=== PATIENT | female | born 1955 | race Caucasian/White ===

== ENCOUNTER → 2020-01-27 | Outpatient (CLI) | payer OTHER ==
[~2020-01-27] MED LIST: ADVAIR HFA 115-12 G1 INH; ALDACTONE50 MG PO; ALLER-FLO15.8 ML NASAL; AMBIEN 10 MG TA10 MG PO; CULTURELLE PRO1 EACH PO; FAMOTIDINE 10 M10 MG PO; LEXAPRO20 MG PO; LISINOPRIL-HCT1 EAC2 PO; PROTONIX40 M4 PO; SINGULAIR 10 MG10 M1 PO; XYZAL5 MG PO; ZOCOR20 MG PO
== END ==
LOC: LAB 11:00
PROVIDERS: ATTEND Surgery
DX: Z01.812 Encounter for preprocedural laboratory examination (principal); Z20.828 Contact with and (suspected) exposure to other viral communicable diseases

== ENCOUNTER 2020-01-31 12:33 | Observation (INO) | payer OTHER ==
[~2020-01-31] VITALS: Ht 165.1 cm; Wt 80.3 kg
--- NOTE | ~2020-01-31 | O ---
[facility] [place] [address] [place] [address] OPERATIVE REPORT Name: HAYDEE SWANSON Room #: 433-I [facility]..#: [id number] Admission: 01/31/20 Attend Phys: Ted Hsieh MD Discharge: Date of : 59 Report #: [id number] THIS REPORT FOR: cc: Carlitos Landis MD,Carlitos Hsieh,Ted Dawson MD ~ CC: Alfonso Hsieh DATE OF SERVICE: 01/31/2020 PREOPERATIVE DIAGNOSIS: Chronic cholecystitis with cholelithiasis and elevated liver function test. POSTOPERATIVE DIAGNOSES: Chronic cholecystitis with cholelithiasis and stone stuck in the gallbladder neck with a nonfunctional gallbladder, fatty liver. PROCEDURES PERFORMED: 1. Laparoscopic cholecystectomy with cholangiogram. 2. Needle core liver biopsy. SURGEON: Ted Hsieh MD COMPLICATIONS: None. ESTIMATED BLOOD LOSS: 20 mL. PROCEDURE NOTE: With the patient under general anesthesia, abdomen prepped and draped in sterile fashion. IV antibiotic was administered. Timeout was performed. A 0.25% Marcaine was used to anesthetize the skin infraumbilically. Fascia identified. After making a 2 cm incision, the fascia was opened between clamps. 0 Vicryl suture placed on the fascia edges for retraction. Veress needle was then placed through the peritoneum. Abdominal cavity was insufflated with CO2. After creating pneumoperitoneum pressure of 15, 11 mm trocar was placed under visualization into the pneumoperitoneum. No harm to underlying tissue. The two 5-mm trocars were placed in the right upper quadrant, another 5 mm trocar was placed in right epigastrium. The patient had quite a bit of adhesion over the gallbladder also along the liver on the lateral edge of the inferior right lobe. The adhesions were taken down. The gallbladder was identified. The gallbladder was thickened and contracted. Dissection was carried out of the proximal part of the gallbladder after finding the cystic duct was noted just below the cystic duct gallbladder junction about 5 mm, there is a stone stuck in the cystic duct. The cystic duct was isolated and the more proximal aspect of cystic duct was freed. A clip was placed in junction of cystic duct to the gallbladder. Opening was made in the cystic duct just below [address] [address] OPERATIVE REPORT Name: HAYDEE SWANSON Room #: 433-I [facility]#: [id number] Admission: 01/31/20 Attend Phys: Ted Hsieh MD Discharge: Date of : 59 Report #: [id number] where the stone was located. Cholangiogram catheter was placed. Fluoroscopic cholangiogram was obtained. Common bile duct filled out well. No filling defect. Catheter was identified. Cystic duct, no harm to the common duct was seen. The cholangiogram catheter was then removed. The proximal cystic duct was then clipped x 2. Cystic duct was then divided. Cystic artery was then isolated, clipped x 2 proximally and 1 distally and then divided. Gallbladder was free from the liver bed. The gallbladder was fairly thin along the posterior aspect and the opening was made in the gallbladder, very thick mucusy material which was __ identified in the gallbladder. This was suctioned out. A couple of stones or cm size did fall out and these stones were retrieved and placed over the omentum. At this point, the gallbladder was already freed. Gallbladder was placed in specimen bag. The two stones were also placed in the liver bed. Gallbladder was then removed without difficulty through the infraumbilical port. Gallbladder was opened off the field and there are a small last couple of small stones in the cystic duct. It was stuck there. Liver bed was checked, hemostasis obtained. Surgicel was cut and placed in the abdomen. Liver biopsy performed with an 18-gauge 22 mm Monopty biopsy gun. Two separate good cores were obtained. Specimen was placed on Telfa, moistened with saline and then placed in formalin. The gallbladder was also placed in a specimen container. Liver bed was checked. No bleeding. After pressure and the Surgicel over the liver biopsy site, hemostasis was obtained here too. A small piece of Surgicel was left over the liver biopsy site. CO2 was evacuated. Trocars removed. Infraumbilical fascia defect was closed with [id number] 0 Vicryl x 2. Skin was closed with 5-0 PDS. Steri-Strip, Band-Aids applied. The patient tolerated the procedure well. By: 20 38 Ted Hsieh MD /nt
[2020-01-31 13:26] LABS: HEMATOCRIT 38.5 % (37.0-47.0); HEMOGLOBIN 13.1 gm/dL (12.0-15.0)
[2020-01-31 13:33] LABS: CALCIUM 8.4 mg/dL (8.5-10.1); CREATININE 0.9 mg/dL (0.6-1.0); POTASSIUM 3.8 mmol/L (3.5-5.1)
[2020-01-31 13:47] VITALS: BP 139/80
--- NOTE | 2020-01-31 16:27 | H ---
[facility] [place] [address] [place] [address] HISTORY AND PHYSICAL Name: HAYDEE SWANSON Room #: 150-2 [facility] M.R.#: [id number] Admission: 01/31/20 Attend Phys: Ted Hsieh MD Discharge: Date of : 59 Report #: [id number] THIS REPORT FOR: cc: Carlitos Landis MD,Carlitos Hsieh,Ted Dawson MD ~ CC: Alfonso Hsieh PREOPERATIVE DIAGNOSES: Cholecystitis with cholelithiasis and abdominal pain. HISTORY OF PRESENT ILLNESS: The patient is a 64-year-old who has had epigastric pain since last April. The patient has been experiencing heartburn for years, history of reflux. She is complaining of pain located in the epigastrium that wraps to her back. She has history of vomiting quite a bit. No nausea. The patient does complain of bloating, full feeling, gas and also belching. She has had occasional loose stool. When the pain gets worse it is rated at 6/10 and the intense part would last only a few minutes. This occurs more at nighttime. She thinks her dad had gallbladder surgery and also her brother for sure. No history of jaundice. She has had EGDs. Her last one looked pretty normal. Her liver function has been elevated up to about 150 range and now currently it is down in the 48 range. The patient's ultrasound did show gallstones in the gallbladder are mobile. The largest one measures a cm. No wall thickening, no pericholecystic fluid, no ductal dilatation. The patient's symptoms are consistent with gallbladder disease. She is recommended to have gallbladder laparoscopic cholecystectomy. PAST MEDICAL HISTORY: The patient has seasonal asthma. She has a history of high blood pressure controlled with meds. The patient denies diabetes, denies lung disease, denies liver disease, denies kidney disease, denies bleeding disorder, denies history of blood clot. ALLERGIES: None. MEDICATIONS: Zolpidem tartrate 10 mg, Pepcid, Protonix, citalopram 20 mg, levocetirizine 5 mg, spironolactone 50 mg, and Singulair 10 mg. FAMILY HISTORY: There is heart disease that runs on the mother's side. SOCIAL HISTORY: The patient is a retired personal injury attorney. She does not smoke. The patient has 2 glasses of wine per day. REVIEW OF SYSTEMS: No chest pain, shortness of breath or palpitation. No numbness or weakness. PHYSICAL EXAMINATION: [facility] [address] [place] [address] HISTORY AND PHYSICAL Name: HAYDEE SWANSON Room #: [address] [place] [address] M.R.#: [id number] Admission: 01/31/20 Attend Phys: Ted Hsieh MD Discharge: Date of : 59 Report #: [id number] GENERAL: The patient is a well-nourished female in no acute distress. HEENT: Pupils react to light. Sclerae are nonicteric. Oropharynx is clear. NECK: Soft and supple, no masses, no JVD. LUNGS: Clear to auscultation. No wheezes. HEART: Regular rate and rhythm. No murmur or gallop. ABDOMEN: Soft with mild tenderness in right upper quadrant. No mass, no ascites. No distention. EXTREMITIES: No cyanosis, clubbing or edema. NEUROLOGIC: Motor and sensory exams normal. IMPRESSION: The patient is a 64-year-old with abdominal pain located in the epigastric area, wraps to her back. The patient does have associated vomiting and bloating. The symptoms are consistent with gallbladder disease. She does have a history of reflux, has had many EGDs in the past. Her last EGD was normal. Her liver function tests have been elevated, but have dropped down probably due to the gallbladder disease. She does have gallstones. The patient is recommended to undergo laparoscopic cholecystectomy, treat her symptomatic cholecystitis with cholelithiasis. Procedure discussed in detail. Expected recovery was discussed. Risk of bleeding, infection, common bile duct injury was discussed. The patient understands the procedure and wished to proceed. <ELECTRONICALLY SIGNED> By: Ted Hsieh MD 01/31/20 1627 2300 [id number] Ted Hsieh MD /nt
--- NOTE | 2020-01-31 18:59 | NUR ---
PATIENT ADMITTED FROM OR WITH5 LAP SITES, ON ABDOMEN AREA. NO C/O PAIN AT THIS TIME. PATIENT DENIES NAUSEA, CLEAR LIQUIDS STARTED TOLERATING W/O DIFFICULTY. SCD'S ATTACHED AND RUNNING. AT BEDSIDE. ADMISSION COMPLETED REPORT GIVEN TO JESSY/MARLA.
[2020-01-31 20:15] VITALS: BP 136/66
--- NOTE | 2020-02-01 04:43 | NUR ---
PT CARE ASSUMED WITH PT IN BED WATCHING TV AT 1900 WITH SPOUSE AT THE BEDSIDE.PT IS ALERT AND ORIENTED X4.PT IS UP WITH X1 ASSIST TO THE RESTROOM.PT HAS 5 FLOR LAP SITE I/C/D WITH BANDAID.PT IS ON CLEAR LIQUID DIET AND TO ADVANCE TOLERATED.PT PAIN MANAGED WITH HYDROCODONE .IV ACCESS ON RH .WILL CONTINUE TO MONITOR
[2020-02-01 05:10] VITALS: BP 132/64
[2020-02-01 07:20] VITALS: BP 112/56
--- NOTE | 2020-02-01 09:09 | NUR ---
ASSESSMENT: CM REVIEWED CHART AND MET WITH PATIENT. PT IS HERE S/P CELY RAY. PT REPORTS THAT SHE LIVES IN A CONDO WITH HER . PT REPORTS BEING FULLY INDEPENDENT WITH ADLS AND AMBULATION. PT HAS NO STEPS SHE HAS TO USE OR ONCE INSIDE. PT DENIES HAVING HH IN THE PAST OR BEING TO A SNF. PT HAS A PCP. CM DISCUSSED ROLE. PT DOES NOT ANTICIPATE HAVING ANY NEEDS PRIOR TO DISCHARGE. CM WILL CONTINUE TO FOLLOW TO ASSIST NEEDED.
[2020-02-01] MEDS ORDERED: HYDROCODON-ACE1 EAC7 PO (13:26)
[2020-02-01 14:34] VITALS: BP 112/56
--- NOTE | 2020-02-02 17:06 | PATH ---
[facility] [place] [address] [place] [address] PATHOLOGY RPT PROCEDURE Name: FLORENCE SWANSON Room #: 433-I [facility] Riggs#: [id number] Admission: 01/31/20 Date of : 59 Discharge: 02/01/20 Report #: [id number] Path Case #: [id number] [facility] Accession Number: [id number] . 01 Material submitted: . PART A: gallbladder - GALLBLADDER PART B: liver - LIVER BIOPSY . 01 Clinical history: . GALLSTONES . 02 Diagnosis: A. Gallbladder, cholecystectomy: - Mild chronic cholecystitis. - Cholelithiasis. . B. Liver, needle core biopsy: - Mild steatohepatitis with mild activity and mild fibrosis. - NAFLD activity score 3/8. - Please see comment. (IUV:tia; 02/02/2020) QMS 02/02/2020 1259 Local . 02 Comment: The needle core biopsy of the liver parenchyma shows approximately 15% macro- and microvesicular steatosis. Minimal portal chronic inflammation is identified. The lobular parenchyma shows some mild chronic inflammation along with few ballooned hepatocytes. Poorly formed Maria De Jesus-Denk bodies are identified as well. Ductular proliferation, predominance of plasma cells, lymphoid aggregates, as well as florid-duct lesions are not identified. Sclerosing lesions of the bile duct are not identified as well. Satellitosis is not identified. . Properly controlled special stains are performed on block B1. Trichrome stain shows phil-sinusoidal fibrosis along with mild pericellular fibrosis. Iron stain is negative. Reticulin stain is distorted by the steatosis. PAS with and without diastase is positive for rare Kupffer cell macrophages, and is negative for intracytoplasmic globules in zone 1. . Steatohepatitis can be seen in several clinical settings including situations of insulin resistance, with alcohol use, as an adverse reaction to several medications, with hyperlipidemias, after gastric or small bowel resections, and as an idiopathic variant. Please correlate clinically. (IUV:tia; 02/02/2020) . 02 Electronically signed: . Brigitte Del Rio MD, [place] [address] PATHOLOGY RPT PROCEDURE Name: FLORENCE SWANSON Room #: 433-I [facility] Charly Riggs#: [id number] Admission: 01/31/20 Date of : 59 Discharge: 02/01/20 Report #: [id number] Path Case #: [id number] [facility]- [id number] . 01 Gross description: . A. The specimen is received in formalin labeled "Florence Swanson, gallbladder" and consists of a previously opened gallbladder measuring 7.2 x 3.3 x 1.2 cm. The margin is inked black. Present in the container are multiple multifaceted calculi measuring between 0.4 and 1.1 cm. The mucosa is smooth pink-lagunas and focally granular with an average wall thickness of 0.1 cm. No masses are identified. 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 . B. The specimen is received in formalin, labeled "Jaun, Florence, liver biopsy" and consists of 2 needle cores of lagunas-brown tissue measuring 2.0 cm each in length and less than 0.1 cm each in diameter which are entirely submitted in B1. (SDY; 02/01/2020) SYU/SYU 02/01/2020 1035 Local . 02 Pathologist provided ICD-10: K80.10, K75.81, K74.0 . 02 CPT . 774448, 997077, 943940, 331821, 715956, 474372, 188796 Specimen Comment: A courtesy copy of this report has been sent to [phone], [phone] Specimen Comment: [id number] Specimen Comment: Report sent to / DR WOODWARD Performed at: [address], [place] [id number] MD Joseph Orona MD Phone: [phone] Performed at: [address] [id number] MD Brigitte Del Rio MD Phone: [phone]
== END 2020-02-01 15:37 | disposition home or self-care (01) ==
LOC: OR → TBA 12:33 → OR 14:41 → 4S 17:25 → OR 17:26 → 4S 17:26
PROVIDERS: ADMIT Surgery; ATTEND Surgery
DX: K80.10 Calculus of gallbladder with chronic cholecystitis without obstruction (principal); K76.0 Fatty (change of) liver, not elsewhere classified; K75.81 Nonalcoholic steatohepatitis (NASH); I10 Essential (primary) hypertension; J45.909 Unspecified asthma, uncomplicated; J98.01 Acute bronchospasm; Z79.899 Other long term (current) drug therapy
CPT/HCPCS: 50010; 50101; 50249; 50411; 50555; 50558; 51046; 51489; 52265; 53307; 53310; 53312; 55245; 55317; 56462; 56525; 56526; 56719; 62110; 62900; 65130; 70005